=== PATIENT | male | born 1975 | race African-American/Black ===

== ENCOUNTER 2020-05-02 19:32 | Emergency (ER) | payer OTHER ==
[2020-05-02 19:39] VITALS: BP 155/99; PULSE 96; TEMP 98; BMI 30.8
--- NOTE | 2020-05-02 20:02 | PDOC ---
History of Present Illness - General Chief Complaint: Injury Stated Complaint: FALL FROM LADDER/SENT BY [facility] Time Seen by Provider: 05/02/20 19:53 History Source: Patient Exam Limitations: No Limitations Past History - Travel History Traveled outside of the country in the last 30 days: No Close contact w/someone who was outside of country & ill: No - Medical History Allergies/Adverse Reactions: Allergies Allergy/AdvReac Type Severity Reaction Status Date / Time No Known Allergies Allergy Verified 05/02/20 19:39 Home Medications: Ambulatory Orders Oxycodone HCl/Acetaminophen [Percocet 10-325 mg Tablet] 1 each PO QID PRN #12 tablet MDD 4 05/02/20 COPD: No Hypercholesterolemia: Yes - Psycho-Social/Smoking History Smoking History: Never smoked Review of Systems - Review of Systems Able to Perform ROS?: Yes Comments:: 05/02/20 21:49 CONSTITUTIONAL: Absent: fever, chills, diaphoresis, generalized weakness, malaise, loss of appetite HEENT: Absent: rhinorrhea, nasal congestion, throat pain, throat swelling, difficulty swallowing, mouth swelling, ear pain, eye pain, visual Changes CARDIOVASCULAR: Absent: chest pain, loss of consciousness, palpitations, irregular heart rate, peripheral edema RESPIRATORY: Absent: cough, shortness of breath, dyspnea with exertion, orthopnea, wheezing, stridor, hemoptysis GASTROINTESTINAL: Absent: abdominal pain, abdominal distension, nausea, vomiting, diarrhea, constipation, melena, hematochezia GENITOURINARY: Absent: dysuria, frequency, urgency, hesitancy, hematuria, flank pain, genital pain MUSCULOSKELETAL: Present: Right-sided rib pain Absent: myalgia, arthralgia, joint swelling SKIN: Absent: rash, itching, pallor HEMATOLOGIC/IMMUNOLOGIC: Absent: easy bleeding, easy bruising, lymphadenopathy, frequent infections ENDOCRINE: Absent: unexplained weight gain, unexplained weight loss, heat intolerance, cold intolerance NEUROLOGIC: Absent: headache, focal weakness or paresthesias, dizziness, unsteady gait, seizure, mental status changes, bladder or bowel incontinence PSYCHIATRIC: Absent: anxiety, depression, suicidal or homicidal ideation, hallucinations. Is the patient limited Khmer proficient: No *Physical Exam - Vital Signs Last Vital Signs Temp Pulse Resp BP Pulse Ox 98 F 96 H 18 155/99 99 05/02/20 19:35 05/02/20 19:35 05/02/20 19:35 05/02/20 19:35 05/02/20 19:35 - Physical Exam 05/02/20 21:49 GENERAL: Well developed, well nourished. Awake and alert. No acute distress, however pt appears uncomfortable. HEENT: Normocephalic, atraumatic. PERRLA, EOMI. No conjunctival pallor. Sclera are non- icteric. Moist mucous membranes. Oropharynx is clear. NECK: Supple. Full ROM. No lymphadenopathy. No midline tenderness CARDIOVASCULAR: Regular rate and rhythm. No murmurs, rubs, or gallops. Distal pulses are 2+ and symmetric. PULMONARY: No evidence of respiratory distress. Lungs clear to auscultation bilaterally. No wheezing, rales or rhonchi. ABDOMINAL: Soft. Non-tender. Non-distended. No rebound or guarding. MUSCULOSKELETAL TTP to the R flank with obvious bruising. Normal range of motion at all joints. No CVA tenderness. EXTREMITIES: No cyanosis. No clubbing. No edema. No calf tenderness. SKIN: Warm and dry. Normal capillary refill. No rashes. No jaundice. NEUROLOGICAL: Alert, awake, appropriate. Cranial nerves 2-12 intact. No deficits to light touch and temperature in face, upper extremities and lower extremities. No motor deficits in the in face, upper extremities and lower extremities. Normoreflexic in the upper and lower extremities. Normal speech. Toes are down-going bilaterally. Gait is normal without ataxia. PSYCHIATRIC: Cooperative. Good eye contact. Appropriate mood and affect. Medical Decision Making - Medical Decision Making 05/02/20 20:18 The patient is a 44 y/o M with no PMH, presents to the ER after falling off a ladder at work. He states he works for [employer] and that as he was falling he hit a electricity box, which struck his right flank. He states that he then landed on the R side of his body. He denies LOC, or hitting his head during the fall. He went to [facility] and was evaluated. [facility] did a of the chest and abdomen and pelvis, which showed no evidence of pneumothorax, hemothorax or organ lacerations per discharge patients from the patieny. CT did show nondisplaced fractures of the right seventh and eighth ribs. He was discharged home on Mobic, lidocaine patch and an incentive spirometer. He states he is still having R side pain as he did not get any other pain medication. States he got two percocet tabs at 2pm at time of the injury. A/P: rib fracture On exam pt with TTP of the R flank with obvious bruising. Lung sounds equal and present on both sides, not concerning for pneumo. Will not repeat scans as pt has documentation from his CT Scans from . Percocet and lidocaine patch given in the ED. Rx for percocet sent to pt's pharmacy. [facility]stop queried #: [id number] Refer pt to f/u with his PCP on Tuesday for management of pain meds Strict return precautions given Discharge home I discussed the physical exam findings, ancillary test results and final diagnoses with the patient. I answered all of the patient's questions. The patient was satisfied with the care received and felt comfortable with the discharge plan and treatment plan. The Patient agrees to follow up with the primary care physician/specialist within 24-72 hours. Return precautions were given. Discharge - Discharge Information Problems reviewed: Yes Clinical Impression/Diagnosis: Ribs, multiple fractures Qualifiers: Encounter type: initial encounter Fracture type: closed Laterality: right Qualified Code(s): S22.41XA - Multiple fractures of ribs, right side, initial encounter for closed fracture Condition: Stable Disposition: HOME - Admission No - Additional Discharge Information Prescriptions: Oxycodone HCl/Acetaminophen [Percocet 10-325 mg Tablet] 1 each PO QID PRN #12 tablet MDD 4 PRN Reason: Pain Prescription Drug Monitoring Program (I-STOP) results: I-STOP reviewed and no issues identified (Reference #: [id number]) - Follow up/Referral Referrals: ON STAFF,NOT [Primary Care Provider] - - Patient Discharge Instructions Patient Printed Discharge Instructions: DI for Rib Fracture Additional Instructions: You were seen for your rib fractures today. You were prescribed Percocet as needed for your pain. Please take 1 tab every 6 hours as needed for pain. Do not drink alcohol or drive after taking this medication as it may make you drowsy. Do not mix this medication with other sedatives including Benadryl. Continue to take the Mobic, incentive spirometer as prescribed to you by urgent care. Please follow-up with your primary care doctor this week for further evaluation of your symptoms. Return to the ER for worsening chest pain, difficulty breathing, shortness of breath or you have any changes in your symptoms. - Post Discharge Activity
[2020-05-02] MEDS ORDERED: LIDOCAINE 5% TOPICAL PATCH TP ONE (20:03)
[2020-05-02] MEDS ORDERED: LIDOCAINE 5% TOPICAL PATCH ONE (20:46)
[2020-05-02] MEDS ORDERED: LIDOCAINE PATCH REMOVAL MC SCH (22:00)
== END 2020-05-02 20:49 | disposition home or self-care (01) ==
LOC: JERFT 19:32 → JER 19:32 → JERFT 20:49
DX: S22.41XA Multiple fractures of ribs, right side, initial encounter for closed fracture (principal)
CPT/HCPCS: 99284-25